=== PATIENT | female | born 1995 | race Two or more races ===

== ENCOUNTER 2018-02-02 12:16 | Day surgery (SDC) | payer OTHER ==
[2018-02-02] MEDS ORDERED: FENTAnyl 50 MCG/ML VIAL (14:52)
[2018-02-02] MEDS ORDERED: MIDAZOLAM 1 MG/ML 2 ML INJ ×2 (14:52)
== END 2018-02-02 16:11 | disposition home or self-care (01) ==
LOC: GIL 12:16
DX: K29.50 Unspecified chronic gastritis without bleeding (principal); K44.9 Diaphragmatic hernia without obstruction or gangrene
CPT/HCPCS: 43239; 84703; 88305; 88312